=== PATIENT | female | born 2005 | race Hispanic/Latino ===

== ENCOUNTER 2025-01-31 20:55 | Emergency (ER) | payer OTHER, SELFPAY ==
[2025-01-31 21:02] VITALS: BP 141/93
[2025-01-31 22:00] VITALS: BP 89/73
[2025-01-31 22:01] LABS: HCG, Serum Qualitative Screen Negative
[2025-01-31 22:06] LABS: ALT (SGPT) 21 U/L (0-35); AST (SGOT) 25 U/L (14-36); Albumin 4.5 g/dl (3.5-5.0); Alkaline Phosphatase 70 U/L (38-126); Blood Urea Nitrogen 11 mg/dl (7-17); Calcium 9.7 mg/dl (8.4-10.2); Carbon Dioxide 23 mmol/L (22-30); Chloride 112 mmol/L (98-107); Glucose 107 mg/dl (70-99); Lipase 110 U/L (23-300); Potassium 4.2 mmol/L (3.5-5.1); Sodium 141 mmol/L (135-145); Total Protein 8.1 g/dl (6.3-8.2); eGFR > 60.00
[2025-01-31 23:00] VITALS: BP 102/61
--- NOTE | 2025-01-31 23:40 | ED.GENMED ---
History of Present Illness
General
Chief Complaint: Abdominal Pain
Time Seen by Provider: 01/31/25 22:37
History of Present Illness
History of Present Illness:
19-year-old female presenting with nonradiating left lower quadrant abdominal pain for the past 2 days. Patient states that she took Gas-X with no relief. Patient denies nausea, vomiting, diarrhea, dysuria, hematuria, fever or chills. Patient
states that she is on the Depo shot and has not gotten her period in 3 years. Patient states that she has been sexually active but not in years. No history of ovarian cyst.
Past History
Social History
Tobacco: Non-smoker
Alcohol: None
Drug: None
Phy Exam
Physical Exam
Physical Exam:
General: Alert, no acute distress
Head: NCAT
Eyes: clear conjunctiva
Neck: supple
Cardiac: regular rate and rhythm, no murmur
Lungs: clear to auscultation bilaterally. No wheezes, rales, or rhonchi. Speaking full unlabored sentences. No respiratory distress.
Abdomen: soft, nondistended LLQ tenderness, no CVA tenderness. No rebound or guarding.
MSK: no lower extremity edema bilaterally. No deformity
Skin: warm, dry
Neuro: Alert and oriented x3. no focal deficits
Course
Orders/Labs/Results
Orders:
Orders
01/31/25 21:06
Test Result ONCE
01/31/25 21:29
Comprehensive Metabolic Panel Urgent
HCG, Serum Qualitative Screen Urgent
Lipase Urgent
01/31/25 23:04
Urinalysis Reflex To Culture Urgent
Date Specimen was Collected: 01/31/25
Time Specimen was Collected: 21:06
01/31/25 23:27
Ketorolac [Toradol] 15 mg IV NOW STA
01/31/25 23:41
Complete Blood Count/With Diff Urgent
02/01/25
CT Abd/pelvis W Iv Cont Urgent
Reason For Exam: llq tenderness
02/01/25 00:00
US Pelvis W Transvag Combined Urgent
Reason For Exam: llq tenderness
Abnormal Lab Results
01/31/25 01/31/25
21:29 23:41
WBC 14.2 H 10^3/uL
(4.8-10.8)
Absolute Neuts (auto) 7.2 H 10^3/uL
(1.4-6.5)
Absolute Lymphs (auto) 5.6 H 10^3/uL
(1.2-3.4)
Absolute Monos (auto) 0.9 H 10^3/uL
(0.1-0.6)
Chloride 112 H mmol/L
(98-107)
Glucose 107 H mg/dl
(70-99)
01/31/25 23:41
01/31/25 21:29
Vital Signs
Initial and Last Documented VS:
Initial Vital Signs
Temp Pulse Resp BP Pulse Ox
97.9 F 96 18 141/93 99
01/31/25 21:02 01/31/25 21:02 01/31/25 21:02 01/31/25 21:02 01/31/25 21:02
Last Documented Vital Signs
Temp Pulse Resp BP Pulse Ox
97.9 F 90 18 110/86 98
01/31/25 21:02 02/01/25 01:30 02/01/25 01:30 02/01/25 01:30 02/01/25 01:30
MDM/Problems Addressed
Differential Diagnosis Includes:
Ovarian torsion, diverticulitis, kidney stone
MDM/Problems Addressed:
Results reviewed. CT abdomen/pelvis significant for epiploic appendagitis of descending colon. Difficulty visualizing ovaries on ultrasound, but low suspicion for torsion given no ovarian masses or adnexal swelling visualized on CT. Discussed
results with patient at bedside. On reevaluation, patient reports significant improvement in left lower quadrant abdominal pain with Toradol. Advised to continue taking Tylenol/Motrin as needed for pain. Stable for discharge home with PCP
follow-up
*Pulse Oximetry
SaO2: 99
Patient hypoxic: no
*Critical Care Note
Total Time (30-74mins, 75-104mins- exclusive of procedures): Not Applicable
ED Attending Note
-
Portions of this chart may have been created with voice recognition software.� Occasional wrong word or��sound alike� substitutions may have occurred due to the inherent limitations of voice recognition software.
Discharge Plan
Departure
Patient Disposition: Home (Routine Discharge)
Date of Disposition: 02/01/25
Time of Disposition: 03:24
Patient with high blood pressure during this ER visit?: Yes
Discharge Problem:
Epiploic appendagitis
Instructions: Abdominal Pain
Prescriptions:
No Action
Depo
.ASDIRECTED
ondansetron 4 mg tablet,disintegrating
4 mg PO Q8H PRN (Reason: nausea and vomiting) 4 Days Qty: 14 0RF
Referrals:
UNKNOWN - PT DOES,NOT KNOW [Family Provider]
Activity Restrictions/Additional Instructions:
Take Tylenol 975 mg every 6 hours and/or ibuprofen 800 mg every 8 hours with food as needed for pain
Follow-up with primary care doctor in 1 to 2 days
Return to emergency department for fever, persistent vomiting, or new/worsening symptoms
Interventions
Interventions:
*Risk Screen - Suicide Last Done: 01/31/25 21:05
*General Assessment Last Done: 01/31/25 21:05
*Neglect/Abuse Screening Last Done: 01/31/25 21:05
*ED- Fall Risk Assessment Last Done: 02/01/25 02:28
UP-Jiarkg-Fwujgqgsdr Assessment Last Done: 01/31/25 22:30
Discharge Date and Time
Print Language: EMIRATI
[2025-01-31] MEDS: TORADOL 15 MG IV (23:45)
[2025-01-31 23:57] LABS: Hematocrit 38.6 % (37.0-47.0); Hemoglobin 12.9 g/dL (12.0-16.0); Mean Corp Hgb Conc. 33.4 g/dL (33.0-37.0); Mean Corpuscular Volume 83.7 fL (81.0-99.0); Platelet Count 246 10^3/uL (130-400); Red Cell Dist. Width 13.2 % (11.5-14.5)
[2025-02-01 01:30] VITALS: BP 110/86
[2025-02-01 01:32] LABS: Nucleated Red Blood Cells % 0 %
== END 2025-02-01 03:40 | disposition home or self-care (01) ==
LOC: EMR 20:55
PROVIDERS: EMERGENCY PHYSICIAN Emergency Medicine
DX: R10.32 Left lower quadrant pain (principal); K63.89 Other specified diseases of intestine; R03.0 Elevated blood-pressure reading, without diagnosis of hypertension
CPT/HCPCS: 99284; 96374; 74177; 76830; 76856; 80053; 83690; 84703; 85025; Q9967